=== PATIENT | male | born 1970 | race Caucasian/White ===

== ENCOUNTER → 2016-06-15 22:09 | Emergency (ER) | payer MEDICARE, OTHER ==
[~2016-06-15 22:09] MED LIST: AMBIEN PO; AMBIEN10 MG PO; ASPIRIN325 M1 PO; CLEOCIN PO; COMBIVENT INH14.7 GM INH; COMBIVENT14.7 GM INH; LASIX PO; LASIX20 MG PO; LISINOPRIL PO; LISINOPRIL20 MG PO; LORTAB 5/500 TA1 TA1 PO; METOPROLOL TAR25 MG PO; MULTIVITAMIN1 UDCAP PO; PROZAC10 M1 PO; THERAPEUTIC M1 TA4 PO; TYLENOL325 M1 PO
== END | disposition left against medical advice (07) ==
LOC: CED 22:09
DX: Z53.21 Procedure and treatment not carried out due to patient leaving prior to being seen by health care provider (principal)
CPT/HCPCS: J0500

== ENCOUNTER 2016-09-25 19:31 | Emergency (ER) | payer MEDICARE ==
--- NOTE | ~2016-09-25 | CR169 ---
[facility] A Service of [facility] RADIOLOGY TEXT RESULTS PATIENT: TIGRE TOWNSEND LOCATION: [facility] : 66 UNIT #: [id number] AGE: [address]: Serjio Espino MD SEX: M ORDER DR: [id number] [facility] [address] [place], [place] [address] [id number] E MR#: [id number] Acc #: [id number] NAME: TIGRE TOWNSEND : 1970 SEX: M STUDY DATE/TIME: 09/25/2016 21:31 UNIT: [facility] ROOM: STUDY DESCRIPTION: CR Knee 2 Views Lt Attending Physician: Serjio Espino M.D. Ordering Physician: Serjio Espino M.D. Primary Care Physician: [facility]ly [facility]. MEDICAL IMAGING REPORT This report is preliminary unless electronic signature is present EXAM Left knee series 09/25/2016 HISTORY 45-year-old male in the ED complaining of chronic left knee pain. Multiple left knee surgeries. TECHNIQUE Three-view left knee series. FINDINGS The exam shows postop changes left total knee arthroplasty. Arthroplasty components are well positioned. Extensive subcutaneous soft tissue edema is seen throughout the visualized leg, and a knee joint effusion is suspected. No fracture, dislocation or other acute osseous abnormality is demonstrated. No significant change since 01/23/2016. Dictated by... Damion Ruiz M.D. THIS IS AN ELECTRONICALLY VERIFIED REPORT Damion Ruiz M.D. at 09/27/2016 8:50 AM RAQUEL/gianni TD: 09/26/2016 12:08 JOB #: [id number] MEDICAL IMAGING REPORT Page 1 of 1 COPY
== END 2016-09-25 22:09 | disposition home or self-care (01) ==
LOC: CED 19:31
DX: M25.462 Effusion, left knee (principal); R60.0 Localized edema; F17.200 Nicotine dependence, unspecified, uncomplicated
CPT/HCPCS: 73560; 99283; J1170